=== PATIENT | male | born 1970 | race African-American/Black ===

== ENCOUNTER 2025-09-03 07:41 | Emergency (ER) | payer SELFPAY ==
--- NOTE | 2025-09-03 07:47 | XRR_ITS ---
PROCEDURE INFORMATION: Exam: XR Right Knee Exam date and time: 09/03/2025 7:59 AM Age: 55 years old Clinical indication: Pain; Knee; Right; Prior surgery; Surgery date: 6+ months; Additional info: Injury TECHNIQUE: Imaging protocol: Radiologic exam of the right knee. Views: 3 views. COMPARISON: No relevant prior studies available. FINDINGS: Bones/joints: A unicompartmental knee prosthesis is noted and is well seated. No fracture or joint effusion noted. Soft tissues: Normal. XR/XR knee RT 3V* [id number] IMPRESSION: No acute findings.
--- OUTSIDE RECORDS SUMMARY | 2025-09-03 07:50 | XMS_ITS | Clinical Summary ---
Author Organization [facility] Address [address] [place] [id number] Care Team Providers Care Python Web Developer Name Role Phone Alli Robison Primary Care Provider Unavailabl e Allergies No known active allergies Medications calcium with vitamin D3 (OS-GA 500 + D) tablet Take 1 tablet by mouth once daily with a meal. 02/22/2018 Active prazosin (MINIPRESS) 5 mg capsule Take 10 mg by mouth at bedtime. 05/09/2020 Active clonazePAM (KLONOPIN) 1 mg tablet Take 1 mg by mouth 4 times daily if needed. 05/30/2020 Active zolpidem (AMBIEN) 10 mg tablet Take 10 mg by mouth at bedtime if needed. 06/04/2020 Active gabapentin (NEURONTIN) 400 mg capsule Take 400 mg by mouth 3 times daily if needed. 04/10/2020 Active lamoTRIgine (LAMICTAL) 200 mg tablet Take 200 mg by mouth once daily in the afternoon. 04/30/2020 Active hydrOXYzine HCL (ATARAX) 25 mg tablet Take 25 mg by mouth every 6 hours if needed for Itching. 04/30/2020 Active ibuprofen (ADVIL; MOTRIN) 200 mg tablet Take 400 mg by mouth 4 times daily if needed. Active Active Problems Problem Noted Date Diagnosed Date s/p ORIF right illium and tr aumatic diastasis of pubic symphasis on 02/19/[address] Fitzgerald at [facility] 07/04/2020 Post-operative right shoulder and upper trapeziu s pain 06/21/2020 s/p right shoulder arthrosco pic rotator cuff repair, SAD, open DCE, AC joint reconstruction with semitendinosis allograft & double dog bone , biceps tendon tenodesis DOS:11/10/[address] Robertson 11/26/2018 Acute pain of right shoulder 11/26/2018 Osteoarthrosis, unspecified whether generalized or localized, lower leg 04/25/2014 Tobacco abuse 04/25/2014 Anxiety disorder 04/25/2014 Immunizations Immunization Administration Dates Next Due Influenza, IIV3 (Age >=3 years) 11/11/2013 Social History Tobacco Use Types Packs/Day Years Used Date Smoking Tobacco: Every Day Cigarettes Smokeless Tobacco: Never Alcohol Use Standard Drinks/Week Comments No 0 (1 standard drink = 0.6 oz pur e alcohol) Social Connections Answer Date Recorded Frequency of Communication with Friends and Fami ly Not on file 11/30/2021 Financial Resource Strain Answer Date R ecorded Difficulty of Paying Living Expenses Not on file 11/30/2021 Difficulty of Paying Living Expenses Not on file 11/30/2021 Sex and Gender Information Value Date Recorded Sex Assigned at Not on file 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 Gender Identity Not on file Sexual Orientation Not on file Last Filed Vital Signs Vital Sign Reading Time Taken Comments Blood Pressure 113/81 06/19/2020 3:00 PM CDT Pulse 77 06/19/2020 3:15 PM CDT Temperature 36.1 C (97 F) 06/19/2020 2:45 PM CDT Respiratory Rate 18 06/19/2020 3:15 PM CDT Oxygen Saturation 98% 06/19/2020 3:00 PM CDT Inhaled Oxygen Concentration - - Weight 109.7 kg (241 lb 13.5 oz) 06/19/2020 9:48 AM CDT Height 182.9 cm (6') 06/19/2020 9:48 AM CDT Body Mass Index 32.8 06/19/2020 9:48 AM CDT Plan of Treatment Health Maintenance Due Date Last Done Comments Tetanus booster 1983 Depression screening for age 12+ 1984 HIV for age 15-65 1987 BMI (ht and wt on same day) for age 18+ 1990 Hepatitis C screening for age 18-79 1990 Hepatitis B series for 19+ ( 1 of 3 - 19+ 3-dose series) 1991 Colonoscopy through age 75 2017 Lipids for age 45-75 2017 Pneumococcal series for age 50+ (1 of 1 - PCV) 022 Zoster (shingles) series for age 50+ (1 of 2) 05/24/20 22 COVID-19 vaccine series (1 - 2023- season) Influenza Vaccine (#1) 2025 11/11/2013 RSV vaccine for adults or pr egnancy (1 - 1-dose 75+ series) 2047 Medical Devices Implanted Type Area Business Information Consultant Device Identifier Shelf Expiration Date Model / Serial / Lot Cmnt Bone 40g Simplex P Non Atb Mv - [id number] Implanted:Qty: 1 on 04/25/2014 at [facility] Right: Knee [employer] [id number] # / / [id number] Insert Knee Rm/Ll Sz5-6 8mm Journey Unicondylar - [id number] Implanted:Qty: 1 on 04/25/2014 at [facility] Right: Knee [employer] [id number]# / / [id number] Baseplate Tib Rm/Ll Sz5 Journey Unicondylar - [id number] Implanted:Qty: 1 on 04/25/2014 at [facility] Right: Knee [employer] [id number]# / / [id number] Fem Rm/Ll Sz6 Journey Post Stbz Oxin Non Pors - [id number] Implanted:Qty: 1 on 04/25/2014 at [facility] Right: Knee [employer] [id number]# / / [id number] Insurance MEDICAID [facility] Advance Directives * Full Code (Latest Code Status on File) Date Activated Date Inactivated Comments 04/25/2014 3:17 PM 04/26/2014 2:07 PM * Full Code Date Activated Date Inactivated Comments 04/25/2014 7:23 AM 04/25/2014 3:17 PM Care Teams Python Web Developer Relationship Specialty Start Date End Date Alli Robison PCP - General Family Practice 03/15/14
--- OUTSIDE RECORDS SUMMARY | 2025-09-03 07:50 | XMS_ITS | Encounter Summary ---
Author Organization [employer] [facility] Address [address] [place] [id number] Care Team Providers Care Antique Dealer Name Role Phone Alli Robison Primary Care Provider Unavailabl e Reason for Visit * Reason Onset Date Comments Leg Pain/problem 09/19/2020 Encounter Details Date Type Department Care Team (Late st Contact Info) Description 09/19/2020 Nurse Triage [facility] [address] [place] [address] [place] [address] [place] [address] Leg Pain/problem Social History Tobacco Use Types Packs/Day Years Used Date Smoking Tobacco: Every Day Cigarettes Smokeless Tobacco: Never Alcohol Use Standard Drinks/Week Comments No 0 (1 standard drink = 0.6 oz pur e alcohol) Sex and Gender Information Value Date Recorded Sex Assigned at Not on file 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 No / Unsure 09/20/2020 12:08 PM CDT documented as of this encounter Miscellaneous Notes * Telephone Encounter - Marjorie Moreno RN - 09/19/2020 7:38 PM CDT FYI Only. Disposition: Urgent Care Per protocol this nurse advised on above disposition and care advice as selected. Patient advised to call back if they develop new, changing, or worsening symptoms. Patient/Caller verbalizes understanding and is agreeable. Additional Nursing Note: will go after he is out of shower. Marjorie Moreno RN .................... 09/19/2020 7:38 PM Reason for Disposition ??? Patient sounds very sick or weak to the triager Answer Assessment - Initial Assessment Questions 1. ONSET: When did the pain start? Work comp issue. Pain injection was last Thursday. Cramping Thursday am. 2. LOCATION: Where is the pain located? Right. 3. PAIN: How bad is the pain? (Scale 1-10; or mild, moderate, severe) - MILD (1-3): doesn't interfere with normal activities - MODERATE (4-7): interferes with normal activities (e.g., work or school) or awakens from sleep, limping - SEVERE (8-10): excruciating pain, unable to do any normal activities, unable to walk Moderate to severe. 4. WORK OR EXERCISE: Has there been any recent work or exercise that involved this part of the body? Work injury. 5. CAUSE: What do you think is causing the leg pain? Work injury. Cramping started after numbing medicine wore off. 6. OTHER SYMPTOMS: Do you have any other symptoms? (e.g., chest pain, back pain, breathing difficulty, swelling, rash, fever, numbness, weakness) Difficulty walking. 7. : Is there any chance you are ? When was your last menstrual period? Na. Protocols used: ADULT LEG PAIN-A-AH documented in this encounter Plan of Treatment Not on file documented as of this encounter Visit Diagnoses Not on filedocumented in this encounter Care Teams Antique Dealer Relationship Specialty Start Date End Date Alli Robison PCP - General Family Practice 03/15/14 documented as of this encounter
[2025-09-03 07:51] VITALS: BP 137/92; PULSE 98; RESP 16; TEMP 36.7; O2SAT 98; BMI 30.4
--- OUTSIDE RECORDS SUMMARY | 2025-09-03 07:51 | XMS_ITS | Clinical Summary ---
Author Organization [facility] Address [address] [place] [address] Care Team Providers Care Scrap Sawyer Name Role Phone [facility] Allergies Active Allergy Reactions Criticality Noted Date Comments Varenicline 09/06/2018 Multiple Anxiety symtoms No Known Drug Allergies 11/11/2013 Sertraline 06/23/2018 Anorgasmia Medications lamoTRIgine (LAMICTAL) 100 mg oral tablet Take 1 tablet (100 mg) by mouth once daily. For one week then 150mg for one week then 200mg daily after initial titration period. 60 tablet 3 1 Active gabapentin (NEURONTIN) 400 mg oral capsule Take 2 capsules (800 mg) by mouth at bedtime. Plus 400mg qam. 270 capsule 1 1 Active hydrOXYzine HCl (ATARAX) 25 mg oral tablet Take 1 tablet (25 mg) by mouth every 6 (six) hours as needed for Itching. 180 tablet 1 1 Active zolpidem (AMBIEN) 10 mg oral tablet Take 1 tablet (10 mg) by mouth at bedtime as needed for sleep. 90 tablet 1 1 Active prazosin (MINIPRESS) 5 mg oral Cap Take 2 capsules (10 mg) by mouth at bedtime. 180 capsule 1 1 Active clonazePAM (KLONOPIN) 1 mg oral tablet TAKE ONE TABLET BY MOUTH FOUR TIMES DAILY NEEDED FOR ANXIETY/ INSOMNIA 120 tablet 5 1 Active Active Problems Problem Noted Date Diagnosed Date BMI 31.0-31.9,adult 07/27/2019 Brachial plexopathy- C5, C6 radiculopathy - 05/17 - s/p accident 02/14 ( neurology ) 05/27/2018 Civilian activity done for income or pay 018 Anesthesia of skin 04/06/2018 Weakness 04/06/2018 Right arm weakness 02/20/2018 Closed displaced fracture of right ilium 018 Traumatic diastasis of symphysis pubis, initial encounter 02/17/2018 Closed dislocation of right acromioclavicular vik int 02/17/2018 Cocaine dependence- 90's ,, quit - 03, 4 Generalized anxiety disorder Cigarette nicotine dependence in remission PTSD (post-traumatic stress disorder) MDD (major depressive disord er), recurrent episode, moderate Resolved Problems Problem Noted Date Diagnosed Date Resolved Date Pain, acute due to trauma 02/18/2018 Acute blood loss anemia 02/18/201804/30 Submersion, initial encounter 02/17/2018 05/12/2019 Exposure to environmental cold 02/17/2018 05/12/2019 Hypothermia, initial encounter 02/17/2018 05/12/2019 Substance abuse 02/17/2018 02/22/2018 Varicella- 83 04/20/2014 05/12/2019 Major depressive disorder, r ecurrent episode, moderate- 80's ( psychiaty ) 04/20/2014 05/12/2019 OCD (obsessive compulsive di sorder)- ( psychiatry ) 04/20/2014 05/12/2019 Posttraumatic stress disorde r- 02/17/18 ( accident ) 05/12/2019 Immunizations Immunization Administration Dates Next Due Influenza (2013-14) 11/11/2013 Influenza recombinant (FluBl ok Quadrivalent PF) 09/06/2018,02/19/2018,02/19/2018(Deferr ed: - New order placed by pharmacy for dosing today),11/11/2013 Influenza split virus quadrivalent 11/11/2013 Td adult absorbed PF (2 Lf) 04/10/2003 Tdap 04/20/2014 Family History Medical History Relation Comments Alcohol Abuse Brother 1/2 brother Relation Status Comments Brother Social History Tobacco Use Types Packs/Day Years Used Date Smoking Tobacco: Former Cigarettes 0.5 10 1 - 09/13/2018 Smokeless Tobacco: Never Alcohol Use Standard Drinks/Week Comments No 0 (1 standard drink = 0.6 oz pur e alcohol) PHQ-2 Answer Date Recorded PHQ-2 Score 10/13/2018 Sex and Gender Information Value Date Recorded Sex Assigned at Not on file Legal Sex Male 6:16 AM CDT Gender Identity Not on file Sexual Orientation Not on file Last Filed Vital Signs Vital Sign Reading Time Taken Comments Blood Pressure 118/72 06/15/2020 3:00 PM CDT Pulse 86 06/15/2020 3:00 PM CDT Temperature 36.3 C (97.4 F) 06/15/2020 3:00 PM CDT Respiratory Rate 18 11/12/2020 10:47 AM SUPERVISOR HYDROCHLORIC AREA Oxygen Saturation 99% 06/15/2020 3:00 PM CDT Inhaled Oxygen Concentration - - Weight 107.5 kg (237 lb) 11/12/2020 10:47 AM SUPERVISOR HYDROCHLORIC AREA Height 180.3 cm (5' 11 ) 11/12/2020 10:47 AM SUPERVISOR HYDROCHLORIC AREA Body Mass Index 33.05 11/12/2020 10:47 AM SUPERVISOR HYDROCHLORIC AREA Plan of Treatment Health Maintenance Due Date Last Done Comments Colonoscopy 1972 Hepatitis C Screening 1972 Lipid Screening 1972 Anxiety Follow-Up (NIRU-7) 1973 Depression Follow-Up (PHQ-9) 1973 Pneumococcal 50+ Years (1 of 1 - PCV) 2022 Yearly Review of HCD 2022 06/15/2020, 06/15/2020, 09/06/2018, Additional history exists Zoster Vaccine (1 of 2) 2022 Adult Tetanus Booster 04/20/2024 04/20/2014, 003 COVID-19 Vaccine (2 - 2024- season) 2025 07/27/2021 Influenza Vaccine (#1) 2025 8, 02/19/2018, 11/11/2013, Additional history exists RSV Vaccines (1 - 1-dose 75+ series) 2047 Meningococcal B Vaccine Aged Out No l onger eligible based on patient's age to complete this topic Medical Devices Implanted Type Area Telecasting Engineer Device Identifier Shelf Expiration Date Model / Serial / Lot Plt Nella St Pel 4h [id number] - [id number] Implanted:Qty: 1 on 02/19/2018 by Stacy Fitzgerald MD at [facility] Plate N/A: [employer] [id number] / / Plt Mattacvdsym [id number] - [id number] Implanted:Qty: 1 on 02/19/2018 by Stacy Fitzgerald MD at [facility] Plate N/A: [employer] [id number] / / Scr [id number] x130 [id number] - [id number] Implanted:Qty: 1 on 02/19/2018 by Stacy Fitzgerald MD at [facility] Screw/Anc hor N/A: [employer] [place] [employer] [id number] / / Scr Mattacrtxst 3.5x20 [id number] - [id number] Implanted:Qty: 1 on 02/19/2018 by Stacy Fitzgerald MD at [facility] Screw/Anc hor N/A: [employer] [id number] / / Scr Mattacrtxst 3.5x26 [id number] - [id number] Implanted:Qty: 1 on 02/19/2018 by Stacy Fitzgerald MD at [facility] Screw/Anc hor N/A: [employer] [id number] / / Scr Mattacrtxst 3.5x30 [id number] - [id number] Implanted:Qty: 1 on 02/19/2018 by Stacy Fitzgerald MD at [facility] Screw/Anc hor N/A: [employer] [id number] / / Scr Mattacrtxst 3.5x50 [id number] - [id number] Implanted:Qty: 1 on 02/19/2018 by Stacy Fitzgerald MD at [facility] Screw/Anc hor N/A: [employer] [id number] / / Scr Mattacrtxst 3.5x55 [id number] - [id number] Implanted:Qty: 1 on 02/19/2018 by Stacy Fitzgerald MD at [facility] Screw/Anc hor N/A: [employer] [id number] / / Scr Mattacrtxst 3.5x60 [id number] - [id number] Implanted:Qty: 3 on 02/19/2018 by Stacy Fitzgerald MD at [facility] Screw/Anc hor N/A: [employer] [id number] / / Explanted Type Area Telecasting Engineer Device Identifier Shelf Expiration Date Model / Serial / Lot Scr Mattacrtxst 3.5x30 [id number] - [id number] Implanted:Stacy Fitzgerald MD (Quantity not on file) Explanted:Qty: 1 on 02/19/2018 by Stacy Fitzgerald MD at [facility] Screw/An chor N/A: [employer] [id number] / / Insurance [facility] Advance Directives For more information, please contact: [phone] * Full Code (Latest Code Status on File) Date Activated Date Inactivated Comments 02/17/2018 5:35 PM 02/23/2018 6:30 PM Question Answer Comments How was code status determined? Patient Care Teams Scrap Sawyer Relationship Specialty Start Date End Date [facility] [address] [place] [address] PCP - [facility] 12/24/23
--- NOTE | 2025-09-03 07:58 | W.ED.EXTPRO ---
HPI - Extremity Problem General: Chief complaint: Extremity Problem,Nontraumatic Stated complaint: right knee pain Time Seen by Provider: 09/03/25 07:47 Source: patient Mode of arrival: ambulatory Limitations: no limitations History of Present Illness: 55-year-old male states that he has been having increased knee pain over the last 4 to 5 days. States he had multiple injuries to his lower extremities he has had knee surgery he states from tearing his knee up is unsure exactly what they did he states he also had a large piece of equipment falling him in 2018 that caused a pelvic fracture he had of surgery on his well he has had chronic pain since then but is worse and over the last 4 to 5 days especially with movement pain is improved with rest denies any recent injuries denies any fever Related Data Previous Rx's ?Medication ?Instructions ?Recorded naproxen 500 mg tablet (Naprosyn) 500 mg PO BID PRN pain #20 tabs 09/03/25 tramadol 50 mg tablet 25 mg (1/2 x 50 mg) PO Q6H PRN 09/03/25 pain #14 tabs Allergies Allergy/AdvReac Type Severity Reaction Status Date / Time No Known Allergies Allergy Verified 09/03/25 07:54 Review of Systems Musc: Reports: extremity pain Physical Exam Const: COMMON NORMALS: no acute distress, patient oriented x3 and healthy appearing HENMT: COMMON NORMALS: normocephalic and atraumatic HEAD & SCALP: normocephalic and atraumatic Eye: COMMON NORMALS: conjunctivae normal CONJUNCTIVA: Yes conjunctivae normal Neck/C-Spine: COMMON NORMALS: full ROM and supple Chest: COMMONS NORMALS: normal inspection of the chest Resp: COMMON NORMALS: normal respiratory effort Cardio: COMMON NORMALS: regular rate, regular rhythm and No murmurs present (Cardio) RATE: regular rate RHYTHM: regular rhythm Extremity: COMMON NORMALS: normal to inspection and full ROM NARRATIVE EXTREMITY EXAM: Slight tenderness knee no warmth to touch no swelling has full range of motion distal pulses sensation intact Neuro: COMMON NORMALS: patient oriented x3, moves all extremities and no focal motor deficits Psych: COMMON NORMALS: mental status grossly normal, Normal thought process present and cooperative THOUGHT PROCESS: Normal thought process present Skin: COMMON NORMALS: no rashes or lesions noted and no wounds GENERAL SKIN EXAM: no rashes or lesions noted Course Vital Signs: Vital signs: Vital Signs Temperature 98.1 F 09/03/25 07:51 Pulse Rate 98 09/03/25 07:51 Respiratory Rate 16 09/03/25 07:51 Blood Pressure 137/92 09/03/25 07:51 Pulse Oximetry 98 09/03/25 07:51 Oxygen Delivery Me thod Room Air 09/03/25 07:51 MDM - Extremity (Nontraumatic) Medical Decision Making Patient presents here with right knee pain that is chronic in nature likely in the arthralgia from previous surgery he has no signs of septic joint no warmth to touch no swelling no signs of DVT distal pulse sensation intact he is to ice we will place him on Naprosyn did give him [place] here to improve his pain we will give him follow-up with orthopedics did discuss this along with his x-ray findings that showed no acute abnormalities he stable for discharge return if worsening he understands agrees plan Medical Records I reviewed the patient's medical records. XR interpretation done by ED provider, pending radiology final review ED provider radiology interpretation(s): xr r knee: no acute abnormality Discharge Plan Discharge Patient Disposition: Home Clinical Impression: Right knee pain Qualifiers: Chronicity: unspecified Qualified Code(s): M25.561 - Pain in right knee Condition: Stable Prescriptions: New naproxen [Naprosyn] 500 mg tablet 500 mg PO BID PRN (Reason: pain) Qty: 20 0RF tramadol 50 mg tablet 25 mg PO Q6H PRN (Reason: pain) Qty: 14 0RF Discharge Orders: Discharge ED (Routine); Ordered 09/03/25 Ordered By: Jocelin Kiran Referrals: ousmane [Other] Veto Llamas DO [Physician, Orthopedics] - 4-7 days Discharge Diet: Advance as tolerated Discharge Activity: Resume usual activity Patient Instructions: Knee Pain (ED) Print Language: Anguillan Coding Level of Care Code ED Compliance Coordinator for Sharon Olivier
[2025-09-03 08:17] VITALS: BP 140/99; PULSE 91; PULSE 92; RESP 16; O2SAT 98
[2025-09-03] MEDS: HYDROcodone-acetaminophen 5-325 mg Tablet 1 TAB PO (08:30)
== END 2025-09-03 08:31 | disposition home or self-care (01) ==
PROVIDERS: Emergency Provider Emergency Medicine
DX: M25.561 Pain in right knee (principal)
CPT/HCPCS: 73562; 99283; J9999